=== PATIENT | female | born 1995 | race African-American/Black ===

== ENCOUNTER 2022-11-15 16:27 | Observation (INO) | payer MEDICAID, SELFPAY ==
[2022-11-15 16:28] VITALS: BP 137/100; PULSE 81; RESP 16; TEMP 37.1; O2SAT 98; BMI 33.6
--- NOTE | 2022-11-15 17:50 | EDS_ITS ---
HPI History of Present Illness Chief Complaint: Substance Abuse Detail of Chief Complaint: Requesting detox from fentanyl Informant: patient Narrative Narrative: Patient presents to the emergency department requesting detox from fentanyl. Patient states that she was referred here from [place]. Patient last used fentanyl about 1 PM. Patient also uses daily cocaine. Patient has been using for about 2 years. Patient last went through a detox program about a year ago. Currently denies any withdrawal symptoms. Patient normally smokes or snorts the fentanyl. Patient denies recent illness. PFSH PFSH Allergy/AdvReac Type Severity Reaction Status Date / Time No Known Allergies Allergy Verified 11/15/22 16:32 ROS ROS ED Review of Systems ROS Unobtainable: other Constitutional Constitutional ED: Reports lethargy; Denies chills, fever(s), sweats or weight loss Eyes Eyes: Denies blurry vision, change in vision or diplopia ENT ENT ED: Denies rhinorrhea or sore throat Cardiovascular Cardiovascular: Denies chest pain, orthopnea or racing heartbeat Respiratory/Chest Respiratory/Chest: Denies cough, dyspnea, dyspnea on exertion, orthopnea or sputum Gastrointestinal Gastrointestinal: Denies abdominal pain, diarrhea, nausea or vomiting Genitourinary Genitourinary ED: Denies dysuria, hematuria or urinary frequency Musculoskeletal Musculoskeletal: Denies arthralgias, back pain, myalgias or neck pain Integumentary Denies abscess, Abrasions or rash Neurologic Neurologic: Denies headache(s) or weakness Psychiatric Psychiatric: Denies anxiety, depression or suicidal thoughts Endocrine Endocrinology: Denies polydipsia, polyphagia or polyuria Hematologic/Lymphatic Hematologic/Lymphatic: Denies easy bleeding, easy bruising or lymphadenopathy Allergic/Immunologic Allergic/Immunologic ED: Denies mouth swelling, tongue swelling or urticaria EXAM Physical Exam Const Vital Signs: 11/15/22 16:28 Temperature 98.7 F Temperature Source Temporal Pulse Rate 81 Respiratory Rate 16 Blood Pressure 137/100 H Blood Pressure Mean 112 Pulse Ox 98 Oxygen Delivery Method Room Air Positive well nourished and well developed General Appearance ED: well developed and NAD HEENT Reports TM's clear and moist mucous membranes normocephalic and atraumatic; Negative for trauma or tenderness Tympanic Membrane ED: Yes TM's clear Eyes PERRL and EOMs intact bilaterally General Eye ED: Negative for pale conjunctiva or scleral icterus Neck no lymphadenopathy, supple and no JVD General: Negative for tenderness Chest Wall inspection of chest normal and palpation of chest normal Chest: Negative for tenderness Resp normal respiratory effort and clear to auscultation bilaterally Effort and Inspection: Negative for respiratory distress or pain with movement Auscultation: Negative for rhonchi, wheezes or diminished lung sounds Cardio regular rate, regular rhythm, S1 normal heart sound, S2 normal heart sound and no murmurs Peripheral Pulses: pulses 2+ throughout GI normal to inspection, nondistended, normoactive bowel sounds, soft to palpation, non-tender, non-distended and no masses Back/Spine no CVA tenderness and no thoracic nor lumbar tenderness Extremity normal to inspection General Extremety ED: Negative for edema General Extremity: Negative for edema Neuro oriented x3, CN's II-XII intact bilaterally, no sensory deficits noted and gait normal Sensorium / Orientation: awake, alert, oriented to person, oriented to place and oriented to time Motor Exam: strength 5/5 throughout and strength abnormal Psych mental status grossly normal Skin no rashes or lesions noted and no wounds Skin Narrative: No track merino noted. MDM MDM MDM Narrative Medical decision making narrative: Patient presents requesting detox from fentanyl. Case will be discussed with hospitalist evaluate patient for admission. I did order basic labs as well as urine tox screen and serum alcohol. Discharge Plan Triage Chief Complaint: Substance Abuse ED Provider: Enid Miller Dx/Rx/DC Orders Clinical Impression: Desire for detoxification, Illicit drug use, Opiate abuse, continuous Primary Care Provider: NOT,DEFINED Referrals: NOT,DEFINED [Primary Care Provider] - Disposition Disposition: Acute Care Hospital [facility]
[2022-11-15 18:12] LABS: Absolute Lymphocyte Count 4.26 X10^3/uL (0.83-4.51); Absolute Neutrophil Count 4.9 X10^3/uL (2.0-7.7); Basophil# 0.06 X10^3/uL; Basophil% 0.6 % (0-1); Eosinophil# 0.18 X10^3/uL; Eosinophils% 1.8 % (0-5); Hematocrit 43.2 % (37-47); Hemoglobin 14.6 g/dL (12.0-15.0); Lymphocyte # 4.26 X10^3/ul (0.83-4.51); Lymphocyte % 42.3 % (19-41); Mean Corp Hgb Conc 33.8 g/dL (32-36); Mean Corpuscular Hgb 28.8 pg (27.0-32.0); Mean Corpuscular Volume 85.2 fL (81-99); Mean Platelet Vol. 9.3 fl (6.2-12.0); Monocyte# 0.63 X10^3/uL; Monocyte% 6.3 % (0-10); NRBC Flagged by Analyzer 0 % (0-5); Neutrophil # 4.92 X10^3/uL (2.7-7.7); Neutrophil % 48.7 % (47-70); Platelet Count 359 K/mm3 (150-450); RBC Distribution Width CV 13.4 % (11.6-14.6); RBC Distribution Width SD 41.6 fl (35.1-43.9); Red Blood Count 5.07 M/mm3 (4.2-5.4); White Blood Count 10.1 K/mm3 (4.4-11.0)
--- NOTE | 2022-11-15 18:20 | HP.PCM.HOS_ITS ---
HPI - General General Date of Admission: 11/15/22 HPI Narrative CATHLEEN GRACE, is a 27 F who presents to the hospital requesting detox from fentanyl. She was referred to the program from [place] which is where she lives. She smokes and snorts fentanyl and her last use was today at 1 PM. Currently not significantly symptomatic, her last detox was about a year ago in [place] and she says that she started using drugs 2 years ago. She started with Percocets and then they got too expensive. She states that she started doing drugs because it was something to do. [facility] Medical History no medical history Allergy/AdvReac Type Severity Reaction Status Date / Time No Known Allergies Allergy Verified 11/15/22 16:32 Family History (Updated 11/15/22 @ 18:[address] Kye Linn MD) Other Cancer Surgical History (Updated 11/15/22 @ 18:[address] Kye Linn MD) Status post surgical removal of both fallopian tubes Social History Smoking Status: Current every day smoker tobacco type: cigarettes ROS Constitutional Constitutional: Denies chills, fatigue, fever(s) or malaise Eyes Eyes: Denies blurry vision ENT HEENT: Denies headache(s) or nasal discharge Cardiovascular Cardiovascular: Denies chest pain, dyspnea on exertion or syncope Respiratory/Chest Respiratory/Chest: Denies cough, shortness of breath at rest or shortness of breath with exertion Gastrointestinal Gastrointestinal: Denies constipation, diarrhea, nausea or vomiting Genitourinary Genitourinary: Denies dysuria Neurologic Neurologic: Denies focal weakness, numbness or tremor(s) Psychiatric Psychiatric: Denies anxiety or depression Vital Signs Vital Signs Vital Signs: 11/15/22 16:28 Temperature 98.7 F Temperature Source Temporal Pulse Rate 81 Respiratory Rate 16 Blood Pressure 137/100 H Blood Pressure Mean 112 Pulse Ox 98 Oxygen Delivery Method Room Air Weight Weight: 190 lb Body Mass Index (BMI) 33.6 Physical Exam Narrative General: Alert, Oriented x3, Cooperative, No apparent distress HEENT: Atraumatic, PERRLA, EOMI, Normocephalic Oral: Moist Mucosa Neck: Supple, No JVD Lungs: Clear to auscultation, Normal air movement, No rhonchi, No wheeze, No rales Cardiovascular: Regular rate, Regular Rhythm, Normal S1, Normal S2, No murmurs Abdomen: Soft, Non Tender, Non-Distended, No Hepato-splenomegaly Extremities: No edema, Capillary Refill Less than 3 Seconds Skin: No rashes, No breakdown Musculoskeletal: No Tenderness to Palpation of Joints or Extremities Neurological: Cranial nerves II-XII grossly intact, Motor Exam 5/5 strength throughout, Sensory exam intact to light touch and pain Psych/Mental Status: Normal Affect, Appropriate Results Lab / Micro Data 11/15/22 18:00 11/15/22 18:00 Labs: Laboratory Results - last 24 hr 11/15/22 18:00: WBC 10.1, RBC 5.07, Hgb 14.6, Hct 43.2, MCV 85.2, MCH 28.8, MCHC 33.8, RDW Std Deviation 41.6, RDW Coeff of Kyle 13.4, Plt Count 359, MPV 9.3, Immature Gran % (Auto) 0.300, Neut % (Auto) 48.7, Lymph % (Auto) 42.3 H, [place] % (Auto) 6.3, Eos % (Auto) 1.8, Baso % (Auto) 0.6, Absolute Neuts (auto) 4.9, Absolute Lymphs (auto) 4.26, Nucleated RBC % 0 Assessment & Plan Assessment/Plan (1) Opiate abuse, continuous: (2) Illicit drug use: (3) Desire for detoxification: PLAN: Plan 1. Opiate abuse requesting detox/tobacco abuse ? Currently not going through withdrawal ? Continue with the opiate withdrawal protocol ? Discussed tobacco cessation ? We will have her follow-up with [facility] while here in the hospital to potentially set up treatment in [place] if possible DVT: Ambulation Charges/Coding Visit Charges Inpatient E&M: 36447 Init Hosp L2
[2022-11-15 18:38] LABS: Alcohol, Blood (Medical)-Serum < 3.0 mg/dL
[2022-11-15 18:41] LABS: ALB/GLOB Ratio 0.9 RATIO (0.9-2.4); AST(SGOT) 16 U/L (15-37); Alanine Aminotransfer ALT/SGPT 20 U/L (13-56); Albumin, Serum 3.6 g/dL (3.2-5.0); Alkaline Phosphatase 71 U/L (45-117); Anion Gap 5 (5-15); BUN 9 mg/dL (7-18); Calcium,Total 9.6 mg/dL (8.5-10.1); Chloride 107 mmol/L (98-107); Creatinine, Serum 0.64 mg/dL (0.55-1.02); EST Glomerular Filtration Rate 117 mL/min (>60); Est Glom Filt Rate - Afr Amer 141 mL/min (>60); Estimated Creatinine Clearance 108.26 ml/min; Globulin 3.9 g/dL (2.2-4.2); Glucose 100 mg/dL (74-106); Potassium 3.6 mmol/L (3.5-5.1); Protein, Total 7.5 g/dL (6.4-8.2); Sodium Level 140 mmol/L (136-145)
[2022-11-15 18:49] VITALS: BP 176/110; PULSE 76; RESP 18; TEMP 36.7; O2SAT 100
[2022-11-15 18:59] LABS: Amphetamine Urine VISTA POSITIVE (<1000 ng/mL); Barbiturate Urine VISTA NEGATIVE (< 200 ng/mL); Benzodiazepine Urine VISTA NEGATIVE (< 200 ng/mL); Cocaine Urine VISTA POSITIVE (< 300 ng/mL); Ecstacy Urine VISTA POSITIVE (< 500 ng/mL); Methadone Urine VISTA NEGATIVE (< 300 ng/mL); PCP Urine VISTA NEGATIVE (< 25 ng/mL); THC Urine VISTA POSITIVE (< 50 ng/mL); Vista UDS pH Range 5
[2022-11-15 19:07] VITALS: BMI 34.4
[2022-11-15 19:15] VITALS: BP 140/93; PULSE 71; RESP 18; TEMP 36.9; O2SAT 99
[2022-11-15 20:15] VITALS: BP 152/104; PULSE 71; RESP 16; TEMP 36.6; O2SAT 100
[2022-11-15] MEDS: cloNIDine HCl 0.1 MG Tablet PO (20:31)
[2022-11-16 00:49] VITALS: BP 136/98; PULSE 69; RESP 16; TEMP 36.7; O2SAT 97
[2022-11-16 04:52] VITALS: BP 138/101; PULSE 68; RESP 16; TEMP 36.6; O2SAT 100
[2022-11-16 10:45] VITALS: BP 146/86; PULSE 70; RESP 18; TEMP 36.6; O2SAT 100
[2022-11-16] MEDS: cloNIDine HCl 0.1 MG Tablet PO ×3 (10:51→23:41)
--- NOTE | 2022-11-16 10:56 | CASEMGMT ---
Social Work SW introduced self and role to patient. Pt present in bed, with blanket over head but awake. Social determinants of health positive for needs with admission. SW conducted SDOH assessment. Pt identified transportation and food concerns. SW provided resource list for [facility] where patient resides. SW also discussed caresource transport for medical appointments and advised to call insurance for medical transportation. Leatha Navarro DIRECTOR PLANS, ADVERTISING OPERATIONS MANAGER
--- NOTE | 2022-11-16 11:47 | ADDICTION ---
This writer editor met with PT to conduct ASAM, MSE, AUDIT, DUDIT assessments and to plan for d/c. PT A+Ox4 and participated actively. All assessments completed and placed in PT's chart. PT plans to f/u with [facility] for follow-up Suboxone/MAT treatment services. [facility] will transport once discharged.
--- NOTE | 2022-11-16 13:50 | PCM.PN.HOSP ---
Reason for Visit Reason for Visit: Diagnoses Opioid abuse, uncomplicated (11/15/22) Other psychoactive substance use, unspecified, uncomplicated (11/15/22) Subjective Subjective Patient was seen and examined today, she is resting quietly, she does not complain of any tremors, nausea, or vomiting. Objective Data Objective Data Vital Signs: Vital Signs Temp Pulse Resp BP Pulse Ox O2 Del Method 98 F 70 18 146/86 H 100 Room Air 11/16/22 10:45 11/16/22 10:45 11/16/22 10:45 11/16/22 10:45 11/16/22 10:45 11/16/22 10:45 Oxygen Delivery Method Room Air Weight: 88.3 kg Body Mass Index (BMI) 34.4 Intake & Output: Intake and Output for Last 24 Hours 11/14/22 11/15/22 11/16/22 23:59 23:59 23:59 Intake Total 1000 / 1000 Balance 1000 / 1000 Lab / Micro Data 11/15/22 18:00 11/15/22 18:00 Labs: Laboratory Results - last 24 hr 11/15/22 18:00: WBC 10.1, RBC 5.07, Hgb 14.6, Hct 43.2, MCV 85.2, MCH 28.8, MCHC 33.8, RDW Std Deviation 41.6, RDW Coeff of Kyle 13.4, Plt Count 359, MPV 9.3, Immature Gran % (Auto) 0.300, Neut % (Auto) 48.7, Lymph % (Auto) 42.3 H, [place] % (Auto) 6.3, Eos % (Auto) 1.8, Baso % (Auto) 0.6, Absolute Neuts (auto) 4.9, Absolute Lymphs (auto) 4.26, Nucleated RBC % 0, Sodium 140, Potassium 3.6, Chloride 107, Carbon Dioxide 28.0, Anion Gap 5, BUN 9, Creatinine 0.64, Estim Creat Clear Calc 108.26, Est GFR (MDRD) Af Amer 141, Est GFR (MDRD) Non-Af 117, BUN/Creatinine Ratio 14.0, Glucose 100, Calcium 9.6, Total Bilirubin 0.30, AST 16, ALT 20, Alkaline Phosphatase 71, Total Protein 7.5, Albumin 3.6, Globulin 3.9, Albumin/Globulin Ratio 0.9, Ethyl Alcohol < 3.0 11/15/22 18:32: Urine Opiates Screen NEGATIVE, Urine Methadone Screen NEGATIVE, Ur Barbiturates Screen NEGATIVE, Ur Phencyclidine Scrn NEGATIVE, Ur Amphetamines Screen POSITIVE H, MDMA (Ecstasy) Screen POSITIVE H, U Benzodiazepines Scrn NEGATIVE, Urine Cocaine Screen POSITIVE H, U Cannabinoids Screen POSITIVE H, Ur Drug Screen Comment Physical Exam Const alert, no apparent distress and healthy appearing General Appearance: cooperative, well kempt and well developed Orientation / Consciousness: awake, oriented to person and oriented to place HEENT normocephalic, head/scalp atraumatic and moist oral mucous membranes Eyes PERRL, EOMs intact bilaterally and conjunctivae normal Neck supple, no JVD, thyroid normal and no carotid bruits General: trachea midline Resp normal respiratory effort, no retractions, no use of accessory muscles and clear to auscultation bilaterally Auscultation: Negative for rales, rhonchi or wheezes Cardio regular rate, regular rhythm, S1 normal heart sound, S2 normal heart sound, no murmurs, no rub and no gallops GI normal to inspection, nondistended, normoactive bowel sounds, soft to palpation, non-tender and non-distended Extremity no clubbing, cyanosis or edema Skin no rashes or lesions noted General Skin Exam: no breakdown Neuro CN's II-XII intact bilaterally, moves all extremities, no focal motor deficits and no sensory deficits noted Sensorium / Orientation: awake, alert, oriented to person and oriented to place Speech: speech normal Psych affect normal Assessment & Plan Assessment/Plan (1) Opiate abuse, continuous: PLAN: Plan 1. Acute opiate withdrawal-patient will continue on her present medication, she met with addiction social media job titles today and plans to follow-up with [facility] #2 essential hypertension-patient will remain on clonidine #3 polysubstance abuse-complicates care, medical course, recovery, and prognosis Total clinical time spent by myself addressing the patient's medical issues, reviewing all of her data, and collaborating with patient's care team: 25 minutes Charges/Coding Visit Charges Inpatient E&M: 18843 Subs Hosp L1
--- NOTE | 2022-11-16 15:05 | CHAPLAIN ---
Type of Pastoral Visit ___ Initial Visit ___ Follow-up Visit ___ On-call Visit ___ General Patient Visit ___ Spiritual Assessment ___ Family Conference ___ Bereavement ___ Rapid Response ___ Code Blue _x__ Other (describe below) Pastoral Care Referral From ___ Patient ___ Family ___ Nurse ___ Physician ___ Network Management Specialist ___ Accounting Professional ___ Other (describe below) Sacrament/Intervention ___ Active listening ___ Anointing ___ Advent ___ Bereavement ___ Communion ___ Zulema exploration ___ ___ Life review ___ Prayer ___ Reconciliation ___ Sacrament of Sick ___ Supportive presence ___ Wedding ___ Other (describe below) Pastoral Comments three attempts to visit the patient but she is asleep at each attempt
[2022-11-16 17:07] VITALS: BP 140/98; PULSE 76; RESP 18; TEMP 36.6; O2SAT 100
[2022-11-16] MEDS: hydrOXYzine PAM 25 MG Capsule 50 MG PO (20:47)
[2022-11-16] MEDS: Buprenorphine HCl 2 MG TAB.SUBL SL (20:47)
[2022-11-16] MEDS: Methocarbamol 750 MG Tablet 1500 MG PO (20:48)
[2022-11-16] MEDS: traZODone 100 MG Tablet PO (20:48)
[2022-11-16] MEDS: Gabapentin 300 MG Capsule PO (20:48)
[2022-11-16 20:53] VITALS: BP 149/87; PULSE 65; RESP 17; TEMP 36.7; O2SAT 97
[2022-11-16 23:40] VITALS: BP 180/79; PULSE 63; RESP 16; TEMP 36.6; O2SAT 100
[2022-11-16] MEDS: Dicyclomine 10 MG Capsule 20 MG PO (23:40)
[2022-11-17] MEDS: Gabapentin 300 MG Capsule PO ×3 (04:37→21:32)
[2022-11-17] MEDS: hydrOXYzine PAM 25 MG Capsule 50 MG PO ×2 (04:37→11:22)
[2022-11-17] MEDS: Methocarbamol 750 MG Tablet 1500 MG PO ×3 (04:37→21:33)
[2022-11-17] MEDS: Buprenorphine HCl 2 MG TAB.SUBL SL ×3 (04:37→21:19)
[2022-11-17 04:41] VITALS: BP 141/94; PULSE 73; RESP 16; TEMP 36.6; O2SAT 98
[2022-11-17] MEDS: cloNIDine HCl 0.1 MG Tablet PO ×2 (09:34→21:19)
[2022-11-17 10:40] VITALS: BP 149/99; PULSE 74; RESP 16; TEMP 36.7; O2SAT 98
[2022-11-17] MEDS: Dicyclomine 10 MG Capsule 20 MG PO (11:22)
--- NOTE | 2022-11-17 12:51 | CHAPLAIN ---
Type of Pastoral Visit __x_ Initial Visit ___ Follow-up Visit ___ On-call Visit ___ General Patient Visit ___ Spiritual Assessment ___ Family Conference ___ Bereavement ___ Rapid Response ___ Code Blue ___ Other (describe below) Pastoral Care Referral From _x__ Patient ___ Family ___ Nurse ___ Physician ___ Leather Scrubber ___ Ethylbenzene Converter Helper ___ Other (describe below) Sacrament/Intervention _x__ Active listening ___ Anointing ___ Moravian ___ Bereavement ___ Communion _x__ Zulema exploration ___ _x__ Life review _x__ Prayer ___ Reconciliation ___ Sacrament of Sick _x__ Supportive presence ___ Wedding ___ Other (describe below) Pastoral Comments patient is introduced to role of systems mgr and she becomes talkative and responsive to questions; pt given support and encouragement for what she is attempting to do; pt admits that she has little support at home and knows that returning will be hard; pt states that she has many apologies to make and wonders how to go about that; pt states she is distressed by how much money she has thrown away due to drug habit and how I could have spent that better on myself; pt is encouraged to look forward and to consider what other means of support she has including zulema in God; pt has a cross necklace and admits to praying to God regularly; pt invites spiritual care and prayer into this situation; pt expresses thanks for the time given to support her
[2022-11-17 15:10] VITALS: BP 129/82; PULSE 67; RESP 18; TEMP 36.4; O2SAT 98
--- NOTE | 2022-11-17 15:44 | PN.HOSP_ITS ---
Reason for Visit Reason for Visit: Diagnoses Opioid abuse, uncomplicated (11/15/22) Other psychoactive substance use, unspecified, uncomplicated (11/15/22) Subjective Subjective Patient was seen and examined today, she has no complaints of any tremor, muscle pain, or nervousness. I talked with addiction social work assistant, they feel that the patient will be ready tomorrow for discharge and she will follow-up as previously arranged. Objective Data Objective Data Vital Signs: Vital Signs Temp Pulse Resp BP Pulse Ox O2 Del Method 97.5 F L 67 18 129/82 H 98 Room Air 11/17/22 15:10 11/17/22 15:10 11/17/22 15:10 11/17/22 15:10 11/17/22 15:10 11/17/22 15:10 Oxygen Delivery Method Room Air Weight: 88.3 kg Body Mass Index (BMI) 34.4 Intake & Output: Intake and Output for Last 24 Hours 11/15/22 11/16/22 11/17/22 23:59 23:59 23:59 Intake Total 1890 / 1890 1340 / 1340 Balance 1890 / 1890 1340 / 1340 Lab / Micro Data 11/15/22 18:00 11/15/22 18:00 Physical Exam Const alert, oriented x3, no apparent distress and healthy appearing General Appearance: cooperative, well kempt and well developed Orientation / Consciousness: awake, oriented to person, oriented to place and oriented to time HEENT normocephalic, head/scalp atraumatic and moist oral mucous membranes Eyes PERRL, EOMs intact bilaterally and conjunctivae normal Neck supple, no JVD, thyroid normal and no carotid bruits General: trachea midline Resp normal respiratory effort, no retractions, no use of accessory muscles and clear to auscultation bilaterally Auscultation: Negative for rales, rhonchi or wheezes Cardio regular rate, regular rhythm, S1 normal heart sound, S2 normal heart sound, no m urmurs, no rub and no gallops GI normal to inspection, nondistended, normoactive bowel sounds, soft to palpation, non-tender and non-distended Extremity no clubbing, cyanosis or edema Skin no rashes or lesions noted General Skin Exam: no breakdown Neuro oriented x3, CN's II-XII intact bilaterally, moves all extremities, no focal motor deficits and no sensory deficits noted Sensorium / Orientation: awake, alert, oriented to person, oriented to place and oriented to time Speech: speech normal Psych affect normal Assessment & Plan Assessment/Plan (1) Opiate abuse, continuous: PLAN: Plan 1. Acute opiate withdrawal-patient will continue on her present medication, she met with addiction social work assistant today and plans to follow-up with [facility]-it is likely she could be discharged tomorrow #2 essential hypertension-patient will remain on clonidine #3 polysubstance abuse-complicates care, medical course, recovery, and prognosis Total clinical time spent by myself addressing the patient's medical issues, reviewing all of her data, and collaborating with patient's care team: 25 minutes Charges/Coding Visit Charges Inpatient E&M: 48280 Subs Hosp L1
[2022-11-17 21:20] VITALS: BP 137/91; PULSE 70; RESP 16; TEMP 37.1; O2SAT 96
[2022-11-17] MEDS: traZODone 100 MG Tablet PO (21:33)
[2022-11-18 05:06] VITALS: BP 134/77; PULSE 67; RESP 20; TEMP 36.5; O2SAT 97
[2022-11-18] MEDS: hydrOXYzine PAM 25 MG Capsule 50 MG PO (05:14)
[2022-11-18] MEDS: Buprenorphine HCl 2 MG TAB.SUBL SL ×2 (05:15→13:25)
--- NOTE | 2022-11-18 09:12 | DCINST_ITS ---
Discharge Instructions Diet Discharge Diet: No restrictions Activity Discharge Activity: Return to Normal Activity Dressing / Incision Call your doctor if you observe: Fever of 101 or Higher, Shortness of breath, Dizziness, Fainting spells, Swelling in the ankles, Chest pain and Increased palpitations (irregular heartbeat) Follow Up Care Test Results: Test results from this visit will be discussed in further detail at your follow- up appointment, if applicable. Discharge Plan Admission Admit Date/Time: 11/15/22 18:19 Attending Provider: Kye Linn Primary Care Provider: RAIMUNDO HERRERA Consulting Providers: Kye Linn; Stephane Medina Discharge Orders/Prescriptions Prescriptions: Continued clonidine HCl 0.1 mg tablet 0.1 mg PO BID Patient Comments: TAKE 1 TABLET BY MOUTH 3 TIMES A DAY NEEDED Referrals / Follow Up: RAIMUNDO HERRERA [Other] NOT,DEFINED [Non-Staff] - Disposition Disposition (needs filled in before D/C Order can be placed): Home, Self Care
[2022-11-18] MEDS: cloNIDine HCl 0.1 MG Tablet PO (09:23)
--- NOTE | 2022-11-18 09:29 | PHA.DC.MR.R ---
Pharmacy [place] Med Reconciliation Pharmacy Service has performed discharge medication reconciliation for this patient. No new medications at time of discharge per [place] review. Medications reviewed are from previously reported home medications. The patient's discharge medication list was reviewed for discrepancies and discrepancies were resolved. Medications at Discharge Home Medications clonidine HCl 0.1 mg tablet 0.1 mg PO BID HYPERTENSION 11/15/22
[2022-11-18] MEDS: Gabapentin 300 MG Capsule PO (09:56)
[2022-11-18] MEDS: Methocarbamol 750 MG Tablet 1500 MG PO (09:56)
[2022-11-18 10:02] VITALS: BP 138/91; PULSE 70; RESP 18; TEMP 36.8; O2SAT 98
--- NOTE | 2022-11-18 13:05 | DS.PCM_ITS ---
Providers Date of Admission: 11/15/22 Primary Care Physician: RAIMUNDO HERRERA Reason For Visit: OPIATE WITHDRAWAL Diagnosis Discharge Diagnosis (1) Opiate abuse, continuous: Status: Acute Code(s): F11.10 - Opioid abuse, uncomplicated Medications at Discharge Home Medications clonidine HCl 0.1 mg tablet 0.1 mg PO BID HYPERTENSION 11/15/22 Hospital Course Operations None Procedures None Summary of Care Provided Minutes Spent on Discharge: 33 Hospital Course: Per HPI: CATHLEEN GRACE, is a 27 F who presents to the hospital requesting detox from fentanyl. She was referred to the program from [place] which is where she lives. She smokes and snorts fentanyl and her last use was today at 1 PM. Currently not significantly symptomatic, her last detox was about a year ago in [place] and she says that she started using drugs 2 years ago. She started with Percocets and then they got too expensive. She states that she started doing drugs because it was something to do. Hospital Course: 1. Opiate withdrawal?27-year-old female presented to the hospital requesting detox from fentanyl. Her drug use started with Percocets and then she transition to fentanyl and it became too expensive. She snorts or smokes does not inject. She has tolerated the opiate withdrawal protocol and I discussed with her the plan for possible discharge today and she expressed understanding of the risk benefits going home to outpatient rehab. Physical Exam Narrative General: Alert, Oriented x3, Cooperative, No apparent distress HEENT: Atraumatic, PERRLA, EOMI, Normocephalic Oral: Moist Mucosa Neck: Supple, No JVD Lungs: Clear to auscultation, Normal air movement, No rhonchi, No wheeze, No rales Cardiovascular: Regular rate, Regular Rhythm, Normal S1, Normal S2, No murmurs Abdomen: Soft, Non Tender, Non-Distended, No Hepato-splenomegaly Extremities: No edema, Capillary Refill Less than 3 Seconds Skin: No rashes, No breakdown Musculoskeletal: No Tenderness to Palpation of Joints or Extremities Neurological: Cranial nerves II-XII grossly intact, Motor Exam 5/5 strength throughout, Sensory exam intact to light touch and pain Psych/Mental Status: Normal Affect, Appropriate Weight / BMI Weight Weight: 194 lb 10.691 oz Body Mass Index (BMI) 34.4 ABG / Lab / Microbiology Data 11/15/22 18:00 11/15/22 18:00 D/C Instructions Discharge Diet: No restrictions Call your doctor if you observe: Fever of 101 or Higher, Shortness of breath, Dizziness, Fainting spells, Swelling in the ankles, Chest pain and Increased palpitations (irregular heartbeat) Meaningful Use Info Meaningful Use Diagnoses (Choose all that apply): None applicable Discharge Plan Admission Admit Date/Time: 11/15/22 18:19 Attending Provider: Kye Linn Primary Care Provider: RAIMUNDO HERRERA Consulting Providers: Kye Linn; Stephane Medina Discharge Orders/Prescriptions Prescriptions: Continued clonidine HCl 0.1 mg tablet 0.1 mg PO BID Patient Comments: TAKE 1 TABLET BY MOUTH 3 TIMES A DAY NEEDED Referrals / Follow Up: RAIMUNDO HERRERA [Other] NOT,DEFINED [Non-Staff] - Disposition Disposition (needs filled in before D/C Order can be placed): Home, Self Care Charges/Coding Visit Charges Inpatient E&M: 27060 Disch Hosp >30min
[2022-11-18 14:42] VITALS: BP 130/77; PULSE 84; RESP 18; TEMP 36.8; O2SAT 98
== END 2022-11-18 14:43 | disposition home or self-care (01) ==
LOC: ED 18:30 → MS3 19:06
PROVIDERS: Admitting Provider Family Medicine; Emergency Provider Emergency Medicine; Referring Provider Family Medicine; Visit Provider Family Medicine
DX: F11.23 Opioid dependence with withdrawal (principal); F14.90 Cocaine use, unspecified, uncomplicated; I10 Essential (primary) hypertension; F17.210 Nicotine dependence, cigarettes, uncomplicated; Z79.899 Other long term (current) drug therapy
CPT/HCPCS: 80053; 80307; 82077; 85025; 99283; H0012